=== PATIENT | male | born 1970 | race Caucasian/White ===

== ENCOUNTER 2017-07-17 14:27 | Emergency (ER) | payer BC ==
[~2017-07-17] VITALS: Ht 185.4 cm; Wt 88.5 kg
--- NOTE | 2017-07-18 20:29 | EKG ---
[facility] [address] [facility] [place] [address] Signed Normal sinus rhythm Normal ECG No previous ECGs available Confirmed by MICHELLE JUNIOR MD ([id number] on 07/18/2017 8:29:40 PM Electronically Signed By: MICHELLE JUNIOR MD 07/18/17 2029 PATIENT NAME: JUNI FRANCES Electrocardiogram DATE OF : 66 PHYSICIAN: MICHELLE JUNIOR MD REPORT #: [id number] REPORT IS CONFIDENTIAL AND NOT TO BE RELEASED WITHOUT AUTHORIZATION
== END 2017-07-17 21:52 | disposition home or self-care (01) ==
LOC: ED 14:27
DX: R42 Dizziness and giddiness (principal); E87.6 Hypokalemia; I47.1 Supraventricular tachycardia; Z90.49 Acquired absence of other specified parts of digestive tract; Z90.89 Acquired absence of other organs
CPT/HCPCS: 80048; 80053; 83735; 83880; 84484; 85025; 93005; 93010; 96361; 96365; 96368; 96375; 99284; J2405; J3411; J3475; J7030